=== PATIENT | male | born 1975 | race Caucasian/White ===

== ENCOUNTER 2017-04-23 08:00 | Emergency (ER) | payer MEDICAID ==
[2017-04-23] MEDS ORDERED: Ondansetron 4 MG Tab.DIS PO ONE (08:46)
[2017-04-23] MEDS ORDERED: Sodium Chloride 0.9% 10 ML Syringe FLUSH PRN (08:46)
[2017-04-23] MEDS ORDERED: HYDROmorphone 1 MG/ML Syringe IVPUSH ONE (08:46)
[2017-04-23] MEDS ORDERED: Sodium Chloride 0.9% 1,000 ML IV SCH (09:00)
[2017-04-23] MEDS ORDERED: HYDROmorphone 0.5 MG/0.5 ML Syringe IVPUSH ONE ×2 (09:37→10:21)
--- NOTE | 2017-04-23 10:09 | US ---
Testicular ultrasound: Multiple real-time images of the testicles were obtained. Varicocele is seen on the left side. Dilated testicular vein is seen within the inguinal region and visualized abdomen. Multiloculated cyst is seen on the left side measuring up to 5.5 cm in size. Small left-sided hydrocele is seen. Several small calcifications are seen within the right testicle likely benign with largest measuring 1 mm. No other intratesticular abnormality is seen. Both arterial and venous blood flow is seen within the testicles. Blood flow within the left testicle slightly increased as compared to the right side possibly due to the increased blood flow from the varicocele and testicular vein. Measurements: Right testicle: 4.3 x 2.6 x 3.4 cm Left testicle: 4.1 x 2.8 x 3.6 cm Impression: 1. Left-sided varicocele. Dilated and tortuous left testicular vein extending into the abdomen. 2. Asymmetric increased blood flow within the left testicle possibly relating to the dilated left testicular vein. Findings could also represent orchitis on the left side and please correlate that patient has no symptoms of such. 3. Complicated multicystic cyst on the left side measuring up to 5.5 cm. 4. Small left-sided hydrocele. 4. Several small calcifications within the right testicle which are believed to be incidental. Diagnostic code #3
[2017-04-23] MEDS ORDERED: Levofloxacin 250 MG Tab PO ONE (10:38)
--- NOTE | 2017-04-23 10:43 | EDM.PDOC ---
ED HPI GENERAL MEDICAL PROBLEM - General Chief Complaint: Abdominal Pain Stated Complaint: [facility] Time Seen by Provider: 04/23/17 08:36 Source of Information: Reports: Patient, RN Notes Reviewed - History of Present Illness INITIAL COMMENTS - FREE TEXT/NARRATIVE: 41 year old male comes in with severe pain L scrotum, swelling. Pain started about 3 days ago, much worse last evening and today. No voiding sx. No unusual discharge. No fever or chills. No back pain. No injury. mild nausea, no vomiting. Right Abdominal Pain Score (Numeric/FACES): 7 - Related Data Allergies Allergy/AdvReac Type Severity Reaction Status Date / Time orphenadrine Allergy Seizure Verified 04/23/17 08:10 aspirin AdvReac Seizure Verified 04/23/17 08:10 Home Meds: Home Meds Acetaminophen/oxyCODONE [Percocet 325-5 MG] 1 tab PO Q6H PRN #14 tablet [Rx] Azithromycin [Zithromax] 1 gm PO DAILY #1 packet 04/23/17 [Rx] Levofloxacin [Levaquin] 500 mg PO Q24H #10 tablet 04/23/17 [Rx] levETIRAcetam [Keppra] 750 mg PO BID 04/23/17 [History] Past Medical History Neurological History: Reports: Migraines - Past Surgical History Neurological Surgical History: Reports: None Other Musculoskeletal Surgeries/Procedures:: back fusion Social & Family History - Tobacco Use Smoking Status *Q: Current Every Day Smoker Years of Tobacco use: 15 Packs/Tins Daily: 1 Second Hand Smoke Exposure: Yes - Caffeine Use Caffeine Use: Reports: Soda - Alcohol Use Days Per Week of Alcohol Use: 0 - Recreational Drug Use Recreational Drug Use: Yes Drug Use in Last 12 Months: Yes Recreational Drug Type: Reports: Marijuana/Hashish Recreational Drug Use Frequency: Weekly ED ROS GENERAL - Review of Systems Review Of Systems: See Below Constitutional: Denies: Fever, Chills, Diaphoresis HEENT: Reports: No Symptoms Respiratory: Denies: Shortness of Breath Cardiovascular: Denies: Chest Pain GI/Abdominal: Reports: Decreased Appetite, Nausea. Denies: Abdominal Pain, Vomiting : Reports: Other (swelling L scrotum). Denies: Discharge, Dysuria, Frequency , Hematuria Musculoskeletal: Denies: Back Pain Skin: Denies: Rash Neurological: Denies: Numbness, Tingling ED EXAM, RENAL/ - Physical Exam Exam: See Below General Appearance: Alert, Moderate Distress Eye Exam: Bilateral Eye: PERRL Throat/Mouth: Normal Inspection, Normal Oropharynx Head: Atraumatic. No: Facial Swelling Neck: Supple, Full Range of Motion Respiratory/Chest: No Respiratory Distress, Lungs Clear, Normal Breath Sounds Cardiovascular: Regular Rate, Rhythm GI/Abdominal: Soft, Tender (Mild tenderness LLQ. ) (Male) Exam: Scrotal Swelling (L, moderate), Scrotum Tenderness (L) Extremities: Normal Inspection, Normal Range of Motion Course - Vital Signs Last Recorded V/S: Last Vital Signs Temp 97.8 F 04/23/17 11:02 Pulse 89 04/23/17 11:02 Resp 18 04/23/17 11:02 BP 124/52 L 04/23/17 11:02 Pulse Ox 99 04/23/17 11:02 - Orders/Labs/Meds Labs: Laboratory Tests 04/23/17 04/23/17 04/23/17 Range/Units 07:20 07:20 10:19 WBC 33.53 H (4.23-9.07) K/mm3 RBC 4.59 L (4.63-6.08) M/mm3 Hgb 13.7 (13.7-17.5) gm/L Hct 39.9 L (40.1-51.0) % MCV 86.9 (79.0-92.2) fl MCH 29.8 (25.7-32.2) pg MCHC 34.3 (32.2-35.5) g/dl RDW Std Deviation 45.7 H (35.1-43.9) fL Plt Count 55 L (163-337) K/mm3 MPV 11.1 (9.4-12.3) fl Neut % (Auto) 82.8 H (34.0-67.9) % Lymph % (Auto) 3.9 L (21.8-53.1) % [place] % (Auto) 12.3 H (5.3-12.2) % Eos % (Auto) 0.5 L (0.8-7.0) Baso % (Auto) 0.1 (0.1-1.2) % Neut # (Auto) 27.74 H (1.78-5.38) K/mm3 Lymph # (Auto) 1.32 (1.32-3.57) K/mm3 [place] # (Auto) 4.12 H (0.30-0.82) K/mm3 Eos # (Auto) 0.16 (0.04-0.54) K/mm3 Baso # (Auto) 0.04 (0.01-0.08) K/mm3 Manual Slide Review Abnormal smear Sodium 132 L (136-145) mEq/L Potassium 3.8 (3.5-5.1) mEq/L Chloride 98 (98-107) mEq/L Carbon Dioxide 24 (21-32) mEq/L Anion Gap 13.8 (5-15) BUN 9 (7-18) mg/dL Creatinine 1.0 (0.7-1.3) mg/dL Est Cr Clr Drug Dosing 94.05 mL/min Estimated GFR (MDRD) > 60 (>60) mL/min BUN/Creatinine Ratio 9.0 L (14-18) Glucose 158 H (74-106) mg/dL Calcium 9.2 (8.5-10.1) mg/dL Total Bilirubin 0.9 (0.2-1.0) mg/dL AST 11 L (15-37) U/L ALT 24 (16-63) U/L Alkaline Phosphatase 101 (46-116) U/L Total Protein 7.6 (6.4-8.2) g/dl Albumin 3.5 (3.4-5.0) g/dl Globulin 4.1 gm/dL Albumin/Globulin Ratio 0.9 L (1-2) Urine Color Light yellow (Yellow) Urine Appearance Clear (Clear) Urine pH 7.0 (5.0-8.0) Ur Specific [place] 1.015 (1.005-1.030) Urine Protein Negative (Negative) Urine Glucose (UA) Negative (Negative) Urine Ketones Negative (Negative) Urine Occult Blood Negative (Negative) Urine Nitrite Negative (Negative) Urine Bilirubin Negative (Negative) Urine Urobilinogen 0.2 (0.2-1.0) Ur Leukocyte Esterase 1+ H (Negative) Urine RBC Not seen (0-5) /hpf Urine WBC 5-10 H (0-5) /hpf Ur Epithelial Cells Not seen (0-5) /hpf Urine Bacteria Few (FEW) /hpf Urine Mucus Not seen (FEW) /hpf Meds: Medications Discontinued Medications Generic Name Dose Route Start Last Admin Trade Name Freq PRN Reason Stop Dose Admin Hydromorphone HCl 0.5 mg 04/23/17 08:46 04/23/17 08:53 Dilaudid IVPUSH 04/23/17 08:47 0.5 mg ONETIME ONE Administration Hydromorphone HCl 0.5 mg 04/23/17 09:37 04/23/17 09:41 Dilaudid IVPUSH 04/23/17 09:38 0.5 mg STAT ONE Administration Hydromorphone HCl 0.5 mg 04/23/17 10:21 04/23/17 10:24 Dilaudid IVPUSH 04/23/17 10:22 0.5 mg ONETIME ONE Administration Sodium Chloride 1,000 mls @ 999 mls/hr 04/23/17 09:00 04/23/17 08:53 Normal Saline IV 999 mls/hr ONETIME EARNEST Administration Levofloxacin 750 mg 04/23/17 10:38 04/23/17 10:57 Levaquin PO 04/23/17 10:39 750 mg ONETIME ONE Administration Ondansetron HCl 4 mg 04/23/17 08:46 04/23/17 08:53 Zofran Odt PO 04/23/17 08:47 4 mg ONETIME ONE Administration Sodium Chloride 10 ml 04/23/17 08:46 04/23/17 08:59 Saline Flush FLUSH 10 ml ASDIRECTED PRN Administration Keep Vein Open - Re-Assessments/Exams Free Text/Narrative Re-Assessment/Exam: 05/01/17 14:18 Radiology report shows possible orchitis, hydrocoele, see report for details. Departure - Departure Time of Disposition: 10:37 Disposition: Home, Self-Care 01 Condition: Fair Clinical Impression: Orchitis, Scrotal cyst - Discharge Information Prescriptions: Acetaminophen/oxyCODONE [Percocet 325-5 MG] 1 tab PO Q6H PRN #14 tablet PRN Reason: Pain Azithromycin [Zithromax] 1 gm PO DAILY #1 packet Levofloxacin [Levaquin] 500 mg PO Q24H #10 tablet Instructions: Orchitis Referrals: PCP,None [Primary Care Provider] - Forms: ED Department Discharge Additional Instructions: Rest, no exertional activity recommended for now, Zithromax antibiotic 1000 mg today as prescribed, you've in your first dose of Levaquin antibiotic. She knows will be tomorrow and then continue that 500 mg daily for 10 days until gone, follow-up with Dr. Francois at the clinic tomorrow or for recheck, call for appointment, Percocet every 6-8 hours as needed for severe pain. Return to ED as needed.
[2017-04-23 11:03] VITALS: BP 124/52
== END 2017-04-23 11:02 | disposition home or self-care (01) ==
LOC: JD.ED 08:00
DX: N45.2 Orchitis (principal); L72.9 Follicular cyst of the skin and subcutaneous tissue, unspecified; F17.210 Nicotine dependence, cigarettes, uncomplicated; Z79.82 Long term (current) use of aspirin; Z88.8 Allergy status to other drugs, medicaments and biological substances; Z79.899 Other long term (current) drug therapy
CPT/HCPCS: 36415; 76870; 80053; 81001; 85025; 93975; 96361; 96374; 96376; 99285; A9270; J1170; J7040; J7050; 99284